=== PATIENT | male | born 1970 | race Two or more races ===

== ENCOUNTER 2022-08-23 09:19 | Emergency (ER) | payer OTHER ==
[~2022-08-23] VITALS: Ht 182.9 cm; Wt 116.6 kg
[2022-08-23] MEDS ORDERED: METOPROLOL SUC100 MG PO (09:45)
[2022-08-23] MEDS ORDERED: SIMVASTATIN40 MG PO (09:45)
[2022-08-23] MEDS ORDERED: PANTOPRAZOLE SO40 MG PO (09:46)
[2022-08-23] MEDS ORDERED: LOSARTAN-HCTZ1 EAC1 PO (09:46)
== END 2022-08-23 14:06 | disposition home or self-care (01) ==
LOC: ER 09:19
DX: M75.50 Bursitis of unspecified shoulder (principal)